=== PATIENT | female | born 1960 | race Caucasian/White ===

== ENCOUNTER → 2017-08-22 15:30 | Outpatient (CLI) | payer BC ==
[2010-12-30 07:55] VITALS: BMI 35.5
[2017-08-22 16:26] LABS: C-REACTIVE PROTEIN 0.6 mg/dL (0.0-0.9)
[2017-08-22 17:47] LABS: ERYTHROCYTE SEDIMENTATION RATE 30 mm/hr (0-30)
== END | disposition home or self-care (01) ==
LOC: D.LAB 15:30
PROVIDERS: Internal Medicine Rheumatology
DX: M54.5 Low back pain (principal); M25.551 Pain in right hip

== ENCOUNTER → 2018-10-23 08:19 | Outpatient (CLI) | payer BC ==
[2010-12-30 07:55] VITALS: BMI 35.5
== END | disposition home or self-care (01) ==
LOC: D.MRI 08:19
PROVIDERS: ATTEND Family Medicine
DX: S92.215A Nondisplaced fracture of cuboid bone of left foot, initial encounter for closed fracture (principal)

== ENCOUNTER 2020-09-23 11:30 | Outpatient (CLI) | payer BC ==
[2010-12-30 07:55] VITALS: BMI 35.5
== END 2020-09-23 12:00 | disposition home or self-care (01) ==
LOC: D.MAMMO 11:30
PROVIDERS: ATTEND Family Medicine
DX: Z12.31 Encounter for screening mammogram for malignant neoplasm of breast (principal)

== ENCOUNTER → 2020-09-30 10:58 | Outpatient (CLI) | payer BC ==
[2010-12-30 07:55] VITALS: BMI 35.5
== END | disposition home or self-care (01) ==
LOC: D.CT 10:58
PROVIDERS: ATTEND Family Medicine
DX: J32.0 Chronic maxillary sinusitis (principal)